=== PATIENT | male | born 1950 | race Caucasian/White ===

== ENCOUNTER 2017-01-04 04:58 | Inpatient (IN) | payer MEDICARE, MEDICAID ==
[~2017-01-04] VITALS: Ht 188 cm; Wt 102.0 kg
[~2017-01-04 04:58] MED LIST: ATOR40TA28 PO; CITA20TA9 PO; LEVO500 PO; LISI-662 PO; METF500T4 PO; MULT-1238 PO
[2017-01-04] MEDS ORDERED: HYDROCODONE/ACETAMINOPHEN 5-325 MG TABLET PO ONE (06:30)
[2017-01-04 06:47] LABS: BASOPHILS % (AUTO) 0.3 % (0.0-2.0); LYMPHOCYTES # (AUTO) 1.6 K/uL (1.0-4.8); LYMPHOCYTES % (AUTO) 11.2 % (22.0-44.0); MEAN CORPUSCULAR HEMOGLOBIN 30.6 pg (26.0-34.0); MEAN CORPUSCULAR HGB CONC 33.5 G/dL (31.0-37.0); MEAN CORPUSCULAR VOLUME 91 fL (80-100); MONOCYTES % (AUTO) 6.9 % (2.0-9.0); NEUTROPHILS # (AUTO) 11.2 K/uL (1.8-7.7); NEUTROPHILS % (AUTO) 80.6 % (40.0-70.0); PLATELET COUNT (AUTO) 320 K/uL (150-450); RED BLOOD CELL COUNT(AUTO) 4.92 MIL/uL (4.50-5.90); RED CELL DISTRIBUTION WIDTH 13.8 % (11.5-14.5); WHITE BLOOD COUNT (AUTO) 13.9 K/uL (4.5-11.0)
[2017-01-04 06:53] LABS: ANION GAP 11 mmol/L (8-16); CALCIUM, TOTAL 8.8 mg/dL (8.8-10.5); CARBON DIOXIDE 27 mmol/L (22-29); CHLORIDE 102 mmol/L (98-107); CREATININE 0.94 mg/dL (0.60-1.30); GLOMERULAR FILTR. RATE CALC > 60 mL/min (>60); POTASSIUM 4.1 mmol/L (3.5-5.1); SODIUM SERUM 140 mmol/L (136-145); UREA NITROGEN, BLOOD 8 mg/dL (7-18)
[2017-01-04 06:58] LABS: ALANINE AMINOTRANSFERASE 27 U/L (12-78); ALBUMIN 3.4 g/dL (3.4-5.0); ASPARTATE AMINOTRANSFERASE 27 U/L (15-37); BILIRUBIN,TOTAL 1.1 mg/dL (0.1-1.0); TOTAL PROTEIN, SERUM 7.3 g/dL (6.4-8.2)
[2017-01-04] MEDS ORDERED: CEFTAROLINE 600 MG/D5W 250 ML IV ONE (07:30)
[2017-01-04] MEDS ORDERED: ACETAMINOPHEN 325 MG TABLET PO PRN (07:45)
[2017-01-04] MEDS: OxyCODONE HCL/ACETAMINOPHEN 5-325 MG TABLET PO PRN ×4 (08:02→19:04)
[2017-01-04] MEDS: HEPARIN SODIUM,PORCINE 5,000 UNITS/ML VIAL SQ SCH ×2 (08:02→15:59)
[2017-01-04] MEDS: PANTOPRAZOLE SODIUM 40 MG DR TABLET PO SCH (08:57)
[2017-01-04 09:24] VITALS: BP 152/85
[2017-01-04] MEDS ORDERED: *CLINICAL-CEFTAROLINE DOSING CLINICAL ONE (09:30)
[2017-01-04] MEDS ORDERED: DEXTROSE 50%-WATER 25 GM/50 ML SYRINGE IVP PRN (09:30)
[2017-01-04 12:01] VITALS: BP 177/98
[2017-01-04 12:01] LABS: GLUCOSE,POINT OF CARE 191 MG/DL (70-110)
[2017-01-04] MEDS: INSULIN ASPART 100 UNITS/ML SQ PRN (12:26)
[2017-01-04 15:45] VITALS: BP 187/90
[2017-01-04 16:02] VITALS: BP 151/89
[2017-01-04 17:42] LABS: GLUCOSE,POINT OF CARE 131 MG/DL (70-110)
[2017-01-04] MEDS: MetFORMIN HCL 500 MG TABLET PO SCH (17:55)
[2017-01-04] MEDS ORDERED: INFLUENZA VIRUS VACCINE QVS 2016-17 (3YR+)/PF 60 MCG/0.5 ML SYRINGE IM ONE (18:45)
[2017-01-04] MEDS ORDERED: PNEUMOCOCCAL VACCINE POLYVALENT 0.5 ML VIAL [PPSV23] IM ONE (18:45)
[2017-01-04 20:18] VITALS: BP 167/89
[2017-01-04] MEDS ORDERED: SODIUM CHLORIDE 0.9% 500 ML IV ONE (20:26)
[2017-01-04] MEDS: CEFTAROLINE 600 MG/D5W 250 ML IV SCH (20:27)
[2017-01-04 20:41] LABS: GLUCOSE,POINT OF CARE 192 MG/DL (70-110)
[2017-01-04 23:33] VITALS: BP 172/68
[2017-01-05] MEDS: HEPARIN SODIUM,PORCINE 5,000 UNITS/ML VIAL SQ SCH ×3 (01:09→17:00)
[2017-01-05] MEDS: OxyCODONE HCL/ACETAMINOPHEN 5-325 MG TABLET PO PRN ×4 (01:10→19:54)
[2017-01-05] MEDS ORDERED: HydrALAZINE HCL 10 MG TABLET PO PRN (02:45)
[2017-01-05 04:42] VITALS: BP 133/85
[2017-01-05 05:16] LABS: GLUCOSE,POINT OF CARE 174 MG/DL (70-110)
[2017-01-05] MEDS: INSULIN ASPART 100 UNITS/ML SQ PRN ×4 (06:27→21:42)
[2017-01-05 07:06] LABS: BASOPHILS # (AUTO) 0.04 K/uL (0.00-0.20); BASOPHILS % (AUTO) 0.4 % (0.0-2.0); EOSINOPHILS # (AUTO) 0.38 K/uL (0.00-0.70); EOSINOPHILS % (AUTO) 3.39 % (1.0-6.0); HEMATOCRIT 39.3 % (41-53); HEMOGLOBIN 13.3 g/dL (13.5-17.5); LYMPHOCYTES # (AUTO) 2.1 K/uL (1.0-4.8); LYMPHOCYTES % (AUTO) 18.5 % (22.0-44.0); MEAN CORPUSCULAR HEMOGLOBIN 30.9 pg (26.0-34.0); MEAN CORPUSCULAR HGB CONC 33.9 G/dL (31.0-37.0); MEAN CORPUSCULAR VOLUME 91 fL (80-100); MONOCYTES % (AUTO) 8.6 % (2.0-9.0); NEUTROPHILS # (AUTO) 7.8 K/uL (1.8-7.7); NEUTROPHILS % (AUTO) 69.1 % (40.0-70.0); PLATELET COUNT (AUTO) 271 K/uL (150-450); RED BLOOD CELL COUNT(AUTO) 4.31 MIL/uL (4.50-5.90); RED CELL DISTRIBUTION WIDTH 13.7 % (11.5-14.5); WHITE BLOOD COUNT (AUTO) 11.2 K/uL (4.5-11.0)
[2017-01-05 07:30] VITALS: BP 144/70
[2017-01-05 07:35] LABS: HEMOGLOBIN A1C 7.1 % (4.5-6.2)
[2017-01-05 08:09] LABS: ALANINE AMINOTRANSFERASE 20 U/L (12-78); ALBUMIN 2.9 g/dL (3.4-5.0); ANION GAP 10 mmol/L (8-16); ASPARTATE AMINOTRANSFERASE 21 U/L (15-37); BILIRUBIN,TOTAL 1.4 mg/dL (0.1-1.0); CALCIUM, TOTAL 8.3 mg/dL (8.8-10.5); CARBON DIOXIDE 26 mmol/L (22-29); CHLORIDE 102 mmol/L (98-107); CREATININE 0.84 mg/dL (0.60-1.30); GLOMERULAR FILTR. RATE CALC > 60 mL/min (>60); POTASSIUM 3.6 mmol/L (3.5-5.1); SODIUM SERUM 138 mmol/L (136-145); TOTAL PROTEIN, SERUM 6.3 g/dL (6.4-8.2); UREA NITROGEN, BLOOD 12 mg/dL (7-18)
[2017-01-05] MEDS: MULTIVITAMINS, THERAPEUTIC TABLET PO SCH (08:22)
[2017-01-05] MEDS: ATORVASTATIN CALCIUM 40 MG TABLET PO SCH (08:22)
[2017-01-05] MEDS: MetFORMIN HCL 500 MG TABLET PO SCH ×2 (08:22→17:00)
[2017-01-05] MEDS: PANTOPRAZOLE SODIUM 40 MG DR TABLET PO SCH (08:22)
[2017-01-05] MEDS: CEFTAROLINE 600 MG/D5W 250 ML IV SCH ×2 (08:23→19:54)
[2017-01-05] MEDS: LISINOPRIL 20 MG TABLET PO SCH (08:23)
[2017-01-05] MEDS: CITALOPRAM HYDROBROMIDE 20 MG TABLET PO SCH (08:23)
[2017-01-05 11:15] VITALS: BP 155/76
[2017-01-05 12:56] LABS: GLUCOSE,POINT OF CARE 187 MG/DL (70-110)
[2017-01-05] MEDS ORDERED: 0.9% SODIUM CHLORIDE 10 ML SYRINGE IVP PRN (13:45)
[2017-01-05 15:58] VITALS: BP 168/80
[2017-01-05] MEDS: HYDROmorphone 2 MG/ML SYRINGE IVP PRN ×2 (17:01→21:41)
[2017-01-05 17:33] LABS: GLUCOSE,POINT OF CARE 189 MG/DL (70-110)
[2017-01-05 20:26] VITALS: BP 155/80
[2017-01-05 23:52] VITALS: BP 144/85
[2017-01-06 00:17] LABS: GLUCOSE,POINT OF CARE 168 MG/DL (70-110)
[2017-01-06] MEDS: INSULIN ASPART 100 UNITS/ML SQ PRN ×2 (05:33→11:43)
[2017-01-06] MEDS: OxyCODONE HCL/ACETAMINOPHEN 5-325 MG TABLET PO PRN ×6 (05:34→23:31)
[2017-01-06 05:37] VITALS: BP 159/79
[2017-01-06 05:52] LABS: GLUCOSE,POINT OF CARE 176 MG/DL (70-110)
[2017-01-06 07:36] LABS: BASOPHILS # (AUTO) 0.04 K/uL (0.00-0.20); BASOPHILS % (AUTO) 0.4 % (0.0-2.0); EOSINOPHILS # (AUTO) 0.28 K/uL (0.00-0.70); EOSINOPHILS % (AUTO) 2.77 % (1.0-6.0); HEMATOCRIT 40.8 % (41-53); HEMOGLOBIN 13.7 g/dL (13.5-17.5); LYMPHOCYTES # (AUTO) 1.8 K/uL (1.0-4.8); LYMPHOCYTES % (AUTO) 17.9 % (22.0-44.0); MEAN CORPUSCULAR HEMOGLOBIN 30.7 pg (26.0-34.0); MEAN CORPUSCULAR HGB CONC 33.5 G/dL (31.0-37.0); MEAN CORPUSCULAR VOLUME 92 fL (80-100); MONOCYTES # (AUTO) 0.8 K/uL (0.1-1.0); MONOCYTES % (AUTO) 8.3 % (2.0-9.0); NEUTROPHILS # (AUTO) 7.1 K/uL (1.8-7.7); NEUTROPHILS % (AUTO) 70.6 % (40.0-70.0); PLATELET COUNT (AUTO) 285 K/uL (150-450); RED BLOOD CELL COUNT(AUTO) 4.45 MIL/uL (4.50-5.90); RED CELL DISTRIBUTION WIDTH 14.1 % (11.5-14.5); WHITE BLOOD COUNT (AUTO) 10.1 K/uL (4.5-11.0)
[2017-01-06 07:49] VITALS: BP 150/80
[2017-01-06 08:00] LABS: ALANINE AMINOTRANSFERASE 20 U/L (12-78); ALBUMIN 3.1 g/dL (3.4-5.0); ANION GAP 11 mmol/L (8-16); ASPARTATE AMINOTRANSFERASE 15 U/L (15-37); CALCIUM, TOTAL 8.7 mg/dL (8.8-10.5); CARBON DIOXIDE 25 mmol/L (22-29); CHLORIDE 102 mmol/L (98-107); CREATININE 0.84 mg/dL (0.60-1.30); GLOMERULAR FILTR. RATE CALC > 60 mL/min (>60); POTASSIUM 3.5 mmol/L (3.5-5.1); SODIUM SERUM 138 mmol/L (136-145); TOTAL PROTEIN, SERUM 6.9 g/dL (6.4-8.2); UREA NITROGEN, BLOOD 11 mg/dL (7-18)
[2017-01-06] MEDS: CITALOPRAM HYDROBROMIDE 20 MG TABLET PO SCH (08:12)
[2017-01-06] MEDS: LISINOPRIL 20 MG TABLET PO SCH (08:12)
[2017-01-06] MEDS: MetFORMIN HCL 500 MG TABLET PO SCH ×2 (08:12→17:05)
[2017-01-06] MEDS: ATORVASTATIN CALCIUM 40 MG TABLET PO SCH (08:12)
[2017-01-06] MEDS: MULTIVITAMINS, THERAPEUTIC TABLET PO SCH (08:13)
[2017-01-06] MEDS: PANTOPRAZOLE SODIUM 40 MG DR TABLET PO SCH (08:13)
[2017-01-06] MEDS: CEFTAROLINE 600 MG/D5W 250 ML IV SCH ×2 (08:13→19:47)
[2017-01-06] MEDS: HEPARIN SODIUM,PORCINE 5,000 UNITS/ML VIAL SQ SCH ×5 (08:13→23:35)
[2017-01-06] MEDS: HYDROmorphone 2 MG/ML SYRINGE IVP PRN ×4 (08:18→20:37)
[2017-01-06 11:50] VITALS: BP 161/76
[2017-01-06 11:58] LABS: GLUCOSE COMMENT 1 Received Meds; GLUCOSE,POINT OF CARE 184 MG/DL (70-110)
[2017-01-06 15:52] VITALS: BP 139/76
[2017-01-06 19:16] LABS: GLUCOSE COMMENT 1 Received Meds; GLUCOSE,POINT OF CARE 140 MG/DL (70-110)
[2017-01-06 20:01] VITALS: BP 158/81
[2017-01-06 23:45] VITALS: BP 175/86
[2017-01-07 04:26] VITALS: BP 175/88
[2017-01-07] MEDS: OxyCODONE HCL/ACETAMINOPHEN 5-325 MG TABLET PO PRN ×4 (04:30→17:06)
[2017-01-07] MEDS: INSULIN ASPART 100 UNITS/ML SQ PRN ×2 (05:27→12:42)
[2017-01-07] MEDS: HYDROmorphone 2 MG/ML SYRINGE IVP PRN (05:28)
[2017-01-07 06:02] LABS: GLUCOSE,POINT OF CARE 130 MG/DL (70-110)
[2017-01-07 06:12] LABS: GLUCOSE,POINT OF CARE 164 MG/DL (70-110)
[2017-01-07 06:56] LABS: BASOPHILS % (AUTO) 0.4 % (0.0-2.0); EOSINOPHILS % (AUTO) 2.2 % (1.0-6.0); HEMATOCRIT 40.6 % (41-53); HEMOGLOBIN 13.4 g/dL (13.5-17.5); LYMPHOCYTES # (AUTO) 1.6 K/uL (1.0-4.8); MEAN CORPUSCULAR HEMOGLOBIN 30.4 pg (26.0-34.0); MEAN CORPUSCULAR VOLUME 92 fL (80-100); MONOCYTES # (AUTO) 0.7 K/uL (0.1-1.0); MONOCYTES % (AUTO) 7.2 % (2.0-9.0); NEUTROPHILS # (AUTO) 7.8 K/uL (1.8-7.7); NEUTROPHILS % (AUTO) 75.2 % (40.0-70.0); PLATELET COUNT (AUTO) 307 K/uL (150-450); RED BLOOD CELL COUNT(AUTO) 4.41 MIL/uL (4.50-5.90); RED CELL DISTRIBUTION WIDTH 13.4 % (11.5-14.5); WHITE BLOOD COUNT (AUTO) 10.3 K/uL (4.5-11.0)
[2017-01-07 07:23] LABS: ALANINE AMINOTRANSFERASE 23 U/L (12-78); ALBUMIN 3.2 g/dL (3.4-5.0); ANION GAP 11 mmol/L (8-16); ASPARTATE AMINOTRANSFERASE 16 U/L (15-37); BILIRUBIN,TOTAL 0.8 mg/dL (0.1-1.0); CALCIUM, TOTAL 8.6 mg/dL (8.8-10.5); CARBON DIOXIDE 25 mmol/L (22-29); CHLORIDE 101 mmol/L (98-107); CREATININE 0.79 mg/dL (0.60-1.30); GLOMERULAR FILTR. RATE CALC > 60 mL/min (>60); POTASSIUM 3.5 mmol/L (3.5-5.1); SODIUM SERUM 137 mmol/L (136-145); TOTAL PROTEIN, SERUM 6.8 g/dL (6.4-8.2); UREA NITROGEN, BLOOD 10 mg/dL (7-18)
[2017-01-07 07:45] VITALS: BP 153/84
[2017-01-07] MEDS: CEFTAROLINE 600 MG/D5W 250 ML IV SCH (08:03)
[2017-01-07] MEDS: LISINOPRIL 20 MG TABLET PO SCH (09:52)
[2017-01-07] MEDS: MULTIVITAMINS, THERAPEUTIC TABLET PO SCH (09:52)
[2017-01-07] MEDS: ATORVASTATIN CALCIUM 40 MG TABLET PO SCH (09:52)
[2017-01-07] MEDS: CITALOPRAM HYDROBROMIDE 20 MG TABLET PO SCH (09:52)
[2017-01-07] MEDS: PANTOPRAZOLE SODIUM 40 MG DR TABLET PO SCH (09:53)
[2017-01-07] MEDS: MetFORMIN HCL 500 MG TABLET PO SCH (09:53)
[2017-01-07] MEDS: HEPARIN SODIUM,PORCINE 5,000 UNITS/ML VIAL SQ SCH ×2 (09:57→17:05)
[2017-01-07 11:36] VITALS: BP 147/72
[2017-01-07 11:57] LABS: GLUCOSE,POINT OF CARE 185 MG/DL (70-110)
[2017-01-07 15:45] VITALS: BP 146/79
== END 2017-01-07 17:45 | DRG 872 ==
LOC: EMS 04:59 → 6N 07:41
PROVIDERS: ADMIT Hospitalist; ATTEND Hospitalist
PROC: 3E0234Z Introduction of Serum, Toxoid and Vaccine into Muscle, Percutaneous Approach (ICD-10-PCS; principal; 2017-01-05)
PROC: 3E0234Z Introduction of Serum, Toxoid and Vaccine into Muscle, Percutaneous Approach (ICD-10-PCS; 2017-01-05)
DX: A41.9 Sepsis, unspecified organism (principal); L03.115 Cellulitis of right lower limb; E78.5 Hyperlipidemia, unspecified; L97.529 Non-pressure chronic ulcer of other part of left foot with unspecified severity; E11.51 Type 2 diabetes mellitus with diabetic peripheral angiopathy without gangrene; F32.9 Major depressive disorder, single episode, unspecified; E11.621 Type 2 diabetes mellitus with foot ulcer; F11.90 Opioid use, unspecified, uncomplicated; F17.210 Nicotine dependence, cigarettes, uncomplicated; Z23 Encounter for immunization; Z91.14 Patient's other noncompliance with medication regimen; Z59.0 Homelessness; Z79.899 Other long term (current) drug therapy; Z79.2 Long term (current) use of antibiotics; Z89.421 Acquired absence of other right toe(s); Z71.6 Tobacco abuse counseling
CPT/HCPCS: 82962; 83036; 90471; 96365; 99285; 99406; J0712; J1170; J1644; J7040

== ENCOUNTER 2017-01-21 21:19 | Emergency (ER) | payer MEDICARE, MEDICAID ==
[~2017-01-21] VITALS: Ht 182.9 cm; Wt 90.5 kg
[2017-01-21] MEDS ORDERED: HYDR25 PO (22:09)
[2017-01-21] MEDS ORDERED: INSNOV SQ (22:09)
[2017-01-21 23:09] LABS: BASOPHILS % (AUTO) 0.3 % (0.0-2.0); EOSINOPHILS % (AUTO) 2.2 % (1.0-6.0); HEMATOCRIT 40.4 % (41-53); HEMOGLOBIN 13.3 g/dL (13.5-17.5); LYMPHOCYTES # (AUTO) 1.5 K/uL (1.0-4.8); LYMPHOCYTES % (AUTO) 13.2 % (22.0-44.0); MEAN CORPUSCULAR HEMOGLOBIN 30.4 pg (26.0-34.0); MEAN CORPUSCULAR VOLUME 92 fL (80-100); MONOCYTES % (AUTO) 8.3 % (2.0-9.0); NEUTROPHILS # (AUTO) 8.8 K/uL (1.8-7.7); PLATELET COUNT (AUTO) 306 K/uL (150-450); RED BLOOD CELL COUNT(AUTO) 4.38 MIL/uL (4.50-5.90); WHITE BLOOD COUNT (AUTO) 11.6 K/uL (4.5-11.0)
[2017-01-21 23:27] LABS: ANION GAP 8 mmol/L (8-16); CALCIUM, TOTAL 8.7 mg/dL (8.8-10.5); CARBON DIOXIDE 27 mmol/L (22-29); CHLORIDE 92 mmol/L (98-107); CREATININE 0.87 mg/dL (0.60-1.30); GLOMERULAR FILTR. RATE CALC > 60 mL/min (>60); POTASSIUM 4.1 mmol/L (3.5-5.1); SODIUM SERUM 127 mmol/L (136-145); UREA NITROGEN, BLOOD 10 mg/dL (7-18)
[2017-01-21 23:33] LABS: ALANINE AMINOTRANSFERASE 20 U/L (12-78); ALBUMIN 3.2 g/dL (3.4-5.0); ASPARTATE AMINOTRANSFERASE 17 U/L (15-37); BILIRUBIN,TOTAL 0.7 mg/dL (0.1-1.0); TOTAL PROTEIN, SERUM 6.7 g/dL (6.4-8.2)
[2017-01-22] MEDS ORDERED: CEPHALEXIN MONOHYDRATE 500 MG CAPSULE PO ONE (05:45)
[2017-01-22] MEDS ORDERED: DOXYCYCLINE 100 MG CAPSULE PO ONE (05:45)
[2017-01-22] MEDS ORDERED: SODIUM CHLORIDE 0.9% 1,000 ML IV ONE (08:30)
[2017-01-22] MEDS ORDERED: SODIUM CHLORIDE 1 GM TABLET PO ONE (08:30)
[2017-01-22 10:44] VITALS: BP 119/75
== END 2017-01-22 10:48 | disposition home or self-care (01) ==
LOC: EMS 21:22
DX: L03.115 Cellulitis of right lower limb (principal); E11.65 Type 2 diabetes mellitus with hyperglycemia; I10 Essential (primary) hypertension; E78.00 Pure hypercholesterolemia, unspecified; F11.90 Opioid use, unspecified, uncomplicated; F17.210 Nicotine dependence, cigarettes, uncomplicated; Z79.4 Long term (current) use of insulin
CPT/HCPCS: 36415; 80053; 82962; 84484; 85025; 96360; 96361; 99285; 99406; J7030; 99284